=== PATIENT | female | born 1960 | race Asian ===

== ENCOUNTER 2025-04-28 14:58 | Emergency (ER) | payer MEDICAID ==
[~2025-04-28] VITALS: Ht 154.9 cm; Wt 74.0 kg
--- NOTE | 2025-04-28 15:12 | Physician Documentation ---
History of Present Illness ~ Stated Complaint: HIGH BP Time Seen by MD: 16:35 [facility] 64-year-old Thai speaking female presents to the emergency department due to concerns for wide variability in her blood pressure. She also endorses a headache and slight shortness of breath. Through the farmer cash grain, she does also express concern that she is taking too many medications. Denies CP. Medication Reconciliation Allergies: Coded Allergies: No Known Allergies (Unverified , 04/28/25) Past Medical History Past Medical History: Hypertension Review of Systems ROS As stated above in the HPI, otherwise all systems are reviewed and negative. Physical Exam Vital Signs: Temperature: 96.8, Heart Rate: 77, Respiratory Rate: 15, BP: 146/80, Pulse Oximetry: 99, Weight: 74 Physical Exam VITALS: Reviewed and as above. GENERAL: Alert, nontoxic appearing, no apparent distress. 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 Acetaminophen 325mg Tablet (Tylenol Tabl (04/28/25 17:15) Vital Signs 04/28/25 04/28/25 04/28/25 04/28/25 15:20 15:56 18:20 19:12 Temp 96.8 Pulse 77 68 82 Resp 15 18 16 16 B/P (MAP) 146/80 128/65 (86) 123/69 Pulse Ox 99 94 99 O2 Flow Rate 0 Laboratory Tests Test 04/28/25 15:40 04/28/25 17:53 White Blood Count 6.7 Red Blood Count 4.11 L Hemoglobin 13.7 Hematocrit 39.2 Mean Corpuscular Volume 95.6 Mean Corpuscular Hemoglobin 33.3 H Mean Corpuscular Hemoglobin Concent 34.8 Red Cell Distribution Width 13.2 Platelet Count 510 H Mean Platelet Volume 6.4 L Neutrophils (%) (Auto) 58.6 Lymphocytes (%) (Auto) 34.4 Monocytes (%) (Auto) 5.5 Eosinophils (%) (Auto) 0.9 Basophils (%) (Auto) 0.6 Neutrophils # (Auto) 4.0 Lymphocytes # (Auto) 2.3 Monocytes # (Auto) 0.4 Eosinophils # (Auto) 0.1 Basophils # (Auto) 0.0 CBC Comment Sodium Level 123 L Potassium Level 3.8 Chloride Level 90 L Carbon Dioxide Level 23.6 L Anion Gap 9 Blood Urea Nitrogen 12 Creatinine 0.63 Estimated GFR/1.73 m2 > 90 BUN/Creatinine Ratio 19.0 Glucose Level 165 H Calcium Level 8.9 Troponin I High Sensitivity 6 6 Pro-B-Type Natriuretic Peptide 59 Albumin 4.2 Chemistry Comments Troponin I High Sens Percent Delta 0 Troponin I Hi Sens Absolute Change 0 EKG/XRAY/CT/US/VASC/MRI EKG : Additional Comment EKG at 3:42 p.m. interpreted by myself as: Sinus rhythm at a rate of 71, normal axis, no ST segment elevation or depression Chest X-Ray : Additional Comments Exam: CHEST,SINGLE VIEW CLINICAL HISTORY: CP TECHNIQUE: PA view of the chest was obtained. WID: COMPARISON: None FINDINGS: Lungs: clear Cardiomediastinal silhouette: normal in size Bones: No acute osseous abnormality. Imaged Upper Abdomen: unremarkable. IMPRESSION: NO ACUTE CARDIOPULMONARY PROCESS. Electronically Signed by:CARLOS ALLRED MD Date & Time: 04/28/251915 Dictated by: CARLOS ALLRED MD Dictation date and time: 04/28/251915 I have reviewed and agree with the radiology report. I have reviewed and interpreted the imaging as: No focal consolidation or pneumothorax Medical Decision Making Additional information obtaine: N/A Findings This 64-year-old female presented with concern for headache and hypertension, patient triage was somewhat hypertensive but not to a level to constitute hypertensive crisis, assessment patient's vital signs blood pressure has dropped to normal range as patient reported taking blood pressure medication prior to arrival. Lab work was without significant abnormality and no evidence of end-or lázaro damage. Patient medicated for headache with improvement in symptoms. She is otherwise well-appearing and appropriate for outpatient follow up with primary care provider. Provided return to care precautions and follow up instructions. Differential Dx:Considerations: Include CHF, Include HTN, essential, Include HTN, accelerated, Include HTN, malignant, Include HTN, encephalopathy, Include medical noncompliance, Include medication withdrawal, Include pulmonary edema, Include renal failure Departure Time of Disposition: 18:18 Disposition: 01 HOME / SELF CARE / HOMELESS Impression: Primary Impression: Headache Qualified Codes: R51.9 - Headache, unspecified Additional Impression: Anxiety about health Condition: Improved Discharge Instructions: General Headache Without Cause, [id number], Hype rtension, Adult, [id number] Additional Instructions: It is reassuring your headache decreased with the Tylenol. You may use this medication in the future for headaches. Your blood pressure was not significantly elevated, if you are having concern for high blood pressure readings at home please discuss this with her primary care provider for adjustment of your blood pressure medicine. Please follow up with your primary care provider in the next few days. Please return to the emergency department for any new or worsening concerning symptoms. Referrals: NO PRIMARY CARE PROVIDER (PCP) Education Educated: Patient Educated regarding: diagnosis, treatment, prognosis, need for follow up Signature Scribe Signature: No scribe Attestation: The note accurately reflects work and decisions made by me.HAYLIE Lamb 04/29/25 02:18 NEYMAR WRAY NP Apr 28, 2025 15:12 CELIA GRIMALDO Apr 28, 2025 17:35
--- NOTE | 2025-04-28 15:45 | ELECTROCARDIOGRAPH REPORT ---
[facility] Test Date: 2025-04-28 Test Time: 15:42:57 Pat Name: SHAAN HURLEY Department: EMERGENCY ROOM Room: Gender: F Operator Specialist Communications: KIRAN : 1960 Requested By: KRYSTAL DACOSTA Order Number: [id number] Reading MD: Dr. WILLIE Bolaños Measurements Intervals [place] Rate: 71 P: 53 NM: 165 QRS: 56 QRSD: 89 T: 52 QT: 383 QTc: 417 Interpretive Statements Sinus rhythm Baseline wander in lead(s) I,V2 Electronically Signed On 04-29-2025 16:52:[address] WILLIE Bolaños Please click the below link to view image of tracing.
[2025-04-28 15:57] LABS: MEAN PLATELET VOLUME 6.4 FL (7.4-10.4); RED CELL DISTRIBUTION WIDTH 13.2 % (11.5-14.5)
[2025-04-28 16:27] LABS: CREATININE 0.63 MG/DL (0.40-0.90); PRO BRAIN NATRIURETIC PEPTIDE 59 PG/ML (0-125); TOTAL CARBON DIOXIDE 23.6 MMOL/L (24-32); eGFR > 90 ML/MIN
--- NOTE | 2025-04-28 19:17 | RADIOLOGY REPORT ---
CLINICAL HISTORY: CP TECHNIQUE: PA view of the chest was obtained. WID: COMPARISON: None FINDINGS: Lungs: clear Cardiomediastinal silhouette: normal in size Bones: No acute osseous abnormality. Imaged Upper Abdomen: unremarkable. IMPRESSION: NO ACUTE CARDIOPULMONARY PROCESS.
[2025-04-29 02:50] VITALS: BP 146/80; PULSE 77; RESP 15; TEMP 96.8; O2SAT 99
== END 2025-04-28 19:13 | disposition home or self-care (01) ==
LOC: ER 14:59
DX: R51.9 Headache, unspecified (principal); F41.9 Anxiety disorder, unspecified; I10 Essential (primary) hypertension
CPT/HCPCS: 36415; 71045; 80048; 83880; 84484; 85025; 93005; 99285